=== PATIENT | male | born 1960 | race Caucasian/White ===

== ENCOUNTER 2018-10-17 08:43 | Day surgery (SDC) | payer OTHER ==
[~2018-10-17] VITALS: Ht 185.4 cm; Wt 113.8 kg
[2018-10-17] MEDS ORDERED: LACTATED RINGERS 1,000 ML IV SCH (09:18)
[2018-10-17] MEDS ORDERED: PLEASE ENTER HEIGHT AND WEIGHT MC SCH (09:30)
[2018-10-17 09:35] VITALS: BP 133/90
[2018-10-17] MEDS ORDERED: FENTANYL PF 250 MCG/5ML ONE (10:04)
[2018-10-17] MEDS ORDERED: MIDAZOLAM 1 MG/ML, 2ML ONE (10:04)
[2018-10-17 10:12] LABS: ALBUMIN 4.1 g/dL (3.4-5.0); ANION GAP 9 mmol/L (5-15); CALCIUM 8.8 mg/dL (8.5-10.1); CHLORIDE 108 mmol/L (98-107)
[2018-10-17 10:16] LABS: ALANINE AMINOTRANSFERASE 47 U/L (12-78); ALKALINE PHOSPHATASE 116 U/L (45-117); BILIRUBIN,TOTAL 0.7 mg/dL (0.2-1.0); TOTAL PROTEIN 7.2 g/dL (6.4-8.2)
[2018-10-17] MEDS ORDERED: ATOR40TA PO (10:23)
[2018-10-17] MEDS ORDERED: TRAM50TA2 PO (10:23)
[2018-10-17] MEDS ORDERED: BUSP10TA PO (10:23)
[2018-10-17] MEDS ORDERED: HYDR25TA11 PO (10:23)
[2018-10-17] MEDS ORDERED: HYDR25TA6 PO (10:23)
[2018-10-17] MEDS ORDERED: METO-93 PO (10:23)
[2018-10-17] MEDS ORDERED: hydrALAzine 20 MG/ML, 1ML ONE (10:30)
[2018-10-17] MEDS ORDERED: DEXAMETHASONE 4 MG/ML, 1ML ONE (10:39)
[2018-10-17] MEDS ORDERED: CEFAZOLIN 1,000 MG ONE ×2 (10:43)
[2018-10-17] MEDS ORDERED: BUPIVACAINE/PF-EPI 0.5% 1:200K ONE (10:51)
[2018-10-17] MEDS ORDERED: BUPIVACAINE/PF 0.5% ONE (10:51)
[2018-10-17] MEDS ORDERED: ROCURONIUM 10MG/ML,5ML ONE (11:08)
[2018-10-17] MEDS ORDERED: ONDANSETRON 2MG/ML, 2ML ONE (11:08)
[2018-10-17] MEDS ORDERED: PROPOFOL 10 MG/ML, 20ML ONE (11:08)
[2018-10-17] MEDS ORDERED: ONDANSETRON 2MG/ML, 2ML IV PRN (11:30)
[2018-10-17] MEDS ORDERED: hydrALAzine 20 MG/ML, 1ML IV PRN (11:30)
[2018-10-17] MEDS ORDERED: OXYcodone 5 MG/5 ML ORAL.SOL UDC PO PRN (11:30)
[2018-10-17] MEDS ORDERED: ACETAMINOPHEN 325 MG TABLET PO PRN (11:30)
[2018-10-17] MEDS ORDERED: LABETALOL 5MG/ML, 20ML IV PRN (11:30)
[2018-10-17] MEDS ORDERED: PROMETHAZINE 25 MG/ML, 1ML IV PRN (11:30)
[2018-10-17] MEDS ORDERED: MEPERIDINE/PF 25MG/0.5ML IVPush PRN (11:30)
[2018-10-17] MEDS ORDERED: FENTANYL PF 100 MCG/2ML ONE (11:41)
[2018-10-17] MEDS ORDERED: OXYcodone 5 MG/5 ML ORAL.SOL UDC ONE (11:41)
[2018-10-17] MEDS ORDERED: ACETAMINOPHEN 650 MG/20.3 ML UDC ONE (11:41)
[2018-10-17] MEDS: FENTANYL PF 100 MCG/2ML IV PRN ×2 (11:45→11:54)
[2018-10-17] MEDS ORDERED: HYDROmorphone 2 MG/ML, 1ML ONE (11:59)
[2018-10-17] MEDS: HYDROmorphone 2 MG/ML, 1ML IVPush PRN ×4 (12:00→12:25)
== END 2018-10-17 14:10 | disposition home or self-care (01) ==
LOC: OUT 08:43
PROVIDERS: ATTEND Orthopaedic Surgery
DX: S52.022A Displaced fracture of olecranon process without intraarticular extension of left ulna, initial encounter for closed fracture (principal); X58.XXXA Exposure to other specified factors, initial encounter; Y93.9 Activity, unspecified; Y92.9 Unspecified place or not applicable; Y99.9 Unspecified external cause status
CPT/HCPCS: 24685; 36415; 73070; 76000; 80053; C1713; J0360; J0690; J1100; J1170; J2250; J2405; J2704; J3010; J7120; J3490